=== PATIENT | male | born 1970 | race Caucasian/White ===

== ENCOUNTER 2016-06-08 20:39 | Emergency (ER) | payer OTHER ==
[~2016-06-08] VITALS: Ht 172.7 cm; Wt 82.6 kg
[2016-06-08] MEDS ORDERED: LIDOCAINE 1% Multi-Dose 20 ML VIAL. ONE (21:32)
[2016-06-08] MEDS ORDERED: LIDOCAINE 2% 20 ML VIAL. ONE (21:32)
--- NOTE | 2016-06-08 21:35 | PHYS DOC ---
General Chief Complaint: BLISTER/COLD SORE Stated Complaint: CYST ON RT HIP Time Seen by MD: 21:29 Source: patient, family Problems: History of Present Illness Initial Comments Patient here with for skin abscess. Patient states he first noticed this several weeks ago. It was slowly getting worse, located under the right buttock cheek, he went to his primary care provider [place] several days ago. He received a prescription for Augmentin which she's been taking him says the swelling and pain is seems to be getting worse. It makes it more difficult for him to sit now. He's noted no drainage or discharge from the area. He says he did try to pin to the area and got a very small amount of blood out at one point in time. He's had no systemic symptoms. Had no fever chills URI symptoms or cough. There's no chest pain or shortness of breath. No nausea vomiting or abdominal pain. There is no change amount or bladder habits. Denies any acute focal extremity or neurologic plates and has no distal weakness numbness or tingling within the right lower extremity. Patient never had an abscess like this before. Other than the antibiotics she's really done nothing at home for this and notes no factors that increase or decrease his symptoms. Patient's past medical history is remarkable for OCD as well as hypothyroidism. He is a nonsmoker and nonuser of ethanol. His last tetanus is 2010. Allergies: Coded Allergies: cefaclor (Verified Allergy, Unknown, 06/08/16) Past Medical History Medical History: other Psychosocial History: other Social History Smoker: non-smoker Alcohol: none Review of Systems All Other Systems: Reviewed and Negative Physical Exam General Appearance: WD/WN, no apparent distress Respiratory: lungs clear, normal breath sounds Cardiovascular: regular rate, rhythm, no edema Gastrointestinal: non tender, soft, no organomegaly Back: no CVA tenderness, no vertebral tenderness Extremities: other Neurologic/Psychiatric: no motor/sensory deficits, alert, normal mood/affect Skin: warm/dry Lymphatic: no adenopathy Comments Generally this well-developed well-nourished white male in no acute distress. Vitals are as noted. Pertinent findings on physical exam shows chest to be clear. Cardiac vascular exams unremarkable. The abdomen is soft and nontender. Back shows no CVA tenderness. Extremity show no rashes cyanosis or edema. Patient does have a 3 cm area it's swollen, exquisitely tender, and mildly fluctuant just under the right buttock cheek. There is an additional 2 cm surrounding area of pale erythema. The areas fairly well circumscribed. There is no red streaks extending out of the area. Overall this consistent with a localized abscess. There is no signs of injury or trauma about the site. He has no distal motor sensory or vascular deficits noted within the right lower extremity. Patient is awake alert oriented and cooperative. Remainder of physical exam is clinically unremarkable. Orders, Labs, Meds Old charts note no prior ER visits within the current system. 2210 Patient resting comfortably in the ED. Discussed with the patient's the need for incision and drainage. This does seem to be fluctuant and has failed outpatient therapy. They voice understanding and are agreeable to same. Under 2% lidocaine without epinephrine anesthesia and sterile technique, the abscess was incised with #11 blade. There was a moderate amount of necrotic material expressed with some scant pus. The cavity was explored with hemostat and fingers and loculations divided. The area was copiously irrigated with saline and packed with a prescription of gauze. Patient tolerated well. I discussed with the patient and his home care of of the wound. This includes warm soapy water sitz baths 3 or 4 times daily, keep it clean with soap and water, and keep a dressing over it at other times. We discussed the need to by secondary intention. He is already on Augmentin and we'll ask him to continue this at home. We'll give him a dose of Lortab prior to discharge him prescriptions at home for the same. We will also get him caught up with his tetanus status. He voices understanding need to follow up with his primary care provider [place] in several days' time for recheck or return to the ER sooner as needed if worsen anyway. He looks well, in no acute discomfort distress, okay for discharge home at this time. BRIAN DUNCAN MD Jun 08, 2016 21:35
[2016-06-08] MEDS ORDERED: LIDOCAINE 2% 20 ML VIAL. IJ ONE (21:45)
[2016-06-08] MEDS ORDERED: TETANUS AND DIPHTHERIA TOX/PF 0.5 ML VIAL. VAX IM ONE (22:15)
[2016-06-08] MEDS ORDERED: DIPHTH,PERTUSS(ACELL),TET TOX 0.5 ML DISP.SYRIN. VAX IM ONE ×2 (22:23→22:30)
[2016-06-08 22:30] VITALS: BP 130/68
[2016-06-08] MEDS ORDERED: HYDROCODONE/APAP 10/325 TABLET. PO ONE (22:45)
== END 2016-06-08 22:33 | disposition home or self-care (01) ==
LOC: ER 20:39
DX: L02.31 Cutaneous abscess of buttock (principal); E03.9 Hypothyroidism, unspecified; Z88.1 Allergy status to other antibiotic agents
CPT/HCPCS: 10060; 90471; 90715; 99283-25; J2001